=== PATIENT | female | born 1960 | race Caucasian/White ===

== ENCOUNTER 2020-03-23 02:09 | Outpatient (CLI) | payer OTHER, SELFPAY ==
[2020-03-23 18:38] LABS: SARS-CoV-2 RNA PCR Negative
== END 2020-03-23 02:10 | disposition home or self-care (01) ==
LOC: ANHCOVIDDT 02:09
PROVIDERS: PCP Family Medicine; Visit Provider Internal Medicine Gastroenterology
DX: Z01.812 Encounter for preprocedural laboratory examination (principal); Z11.59 Encounter for screening for other viral diseases
CPT/HCPCS: 87635; C9803; U0003

== ENCOUNTER 2020-03-25 02:16 | Day surgery (SDC) | payer OTHER, SELFPAY ==
[2020-03-18 11:38] VITALS: BMI 35.9
[2020-03-25 07:19] VITALS: BP 130/73; PULSE 88; RESP 20; TEMP 36.6; O2SAT 97
[2020-03-25] MEDS: LACTATED RINGERS 1,000 ML 150 ML IV CONT (07:32)
--- NOTE | 2020-03-25 08:18 | P.HP_ITS ---
History of Present Illness History of Present Illness Consent: Risks, benefits, and alternatives have been discussed and questions answered. Patient agrees to proceed with procedure. Chief complaint: neoplasm screening Narrative: Honey Hicks is a 60 year old female referred for screening colonoscopy. Her last exam was 10 years ago [facility] Past Medical History Medical History Anxiety GERD (gastroesophageal reflux disease) Hyperlipidemia Hypertension LATONIA (obstructive sleep apnea) Family History Family History Father Hypertension Family history of elevated blood lipids Family history of kidney disease Grandparent Family history of Alzheimer's disease Mother Family history of heart disease in male family member before age 55 Hypertension Family history of dementia Family history of Alzheimer's disease Social History Social History Smoking status: Former smoker Smoking end date: 09/02/08 Alcohol intake: current Meds Home Medications and Allergies Home Medications Medication Instructions Recorded Confirmed Type allopurinol 100 mg PO HS 03/18/20 03/18/20 History alprazolam 0.5 mg PO BID PRN 03/18/20 03/18/20 History amlodipine 5 mg PO QAM 03/18/20 03/18/20 History atorvastatin 10 mg PO HS 03/18/20 03/18/20 History calcium carbonate [Calcium 600] 600 mg PO DAILY 03/18/20 03/18/20 History ewkctblpt-mkibqsxm-fii-hyalur 1 tablet PO QAM 03/18/20 03/18/20 History [Move Free Ultra Triple Action] celecoxib 100 mg PO BID 03/18/20 03/18/20 History ergocalciferol (vitamin D2) 50,000 unit PO WEEKLY 03/18/20 03/18/20 History lisinopril-hydrochlorothiazide 1 tablet PO QAM 03/18/20 03/18/20 History magnesium 250 mg PO DAILY 03/18/20 03/18/20 History phentermine 30 mg PO QAM 03/18/20 03/18/20 History Allergies Allergy/AdvReac Type Severity Reaction Status Date / Time No Known Allergies Allergy Verified 03/25/20 07:18 Vital Signs Vital Signs - 24 hr 03/25/20 07:19 Temperature 36.6 C Pulse Rate 88 Respiratory Rate 20 Blood Pressure 130/73 Pulse Oximetry 97 Exam Resp: Auscultation: clear to auscultation bilaterally Cardio: Rate: regular rate Rhythm: regular rhythm GI: GI Palp: Yes Soft to palpation and No Tenderness to palpation present (GI) Assessment and Plan Assessment and plan (1) Colon cancer screening: Code(s): Z12.11 - Encounter for screening for malignant neoplasm of colon Status: Acute Assessment and Plan: Colonoscopy with possible biopsy or polypectomy or cautery or injection of substances.
--- NOTE | 2020-03-25 08:20 | WPDANESEPPF ---
Anes - Initial Pre Proc Eval Procedure: Operation Date: 03/25/20 08:30 Proposed Procedures p Screening Colonoscopy - Jose Luis Bills MD Date/Time: 03/25/20 08:20 Surgeon: Jose Luis Bills MD Pre Op Diagnosis: neoplasm screening Patient Data Age: 60 Gender: F Height: 5 ft 3 in Weight: 92.1 kg Last Vital Signs Temp 97.8 F 03/25/20 07:19 Pulse 88 03/25/20 07:19 Resp 20 03/25/20 07:19 BP 130/73 03/25/20 07:19 Pulse Ox 97 03/25/20 07:19 Allergies Allergy/AdvReac Type Severity Reaction Status Date / Time No Known Allergies Allergy Verified 03/25/20 07:18 Home Medications Medication Instructions Recorded Confirmed Type allopurinol 100 mg PO HS 03/18/20 03/18/20 History alprazolam 0.5 mg PO BID PRN 03/18/20 03/18/20 History amlodipine 5 mg PO QAM 03/18/20 03/18/20 History atorvastatin 10 mg PO HS 03/18/20 03/18/20 History calcium carbonate [Calcium 600] 600 mg PO DAILY 03/18/20 03/18/20 History [id number]-wccghdbb-gxb-hyalur 1 tablet PO QAM 03/18/20 03/18/20 History [Move Free Ultra Triple Action] celecoxib 100 mg PO BID 03/18/20 03/18/20 History ergocalciferol (vitamin D2) 50,000 unit PO WEEKLY 03/18/20 03/18/20 History lisinopril-hydrochlorothiazide 1 tablet PO QAM 03/18/20 03/18/20 History magnesium 250 mg PO DAILY 03/18/20 03/18/20 History phentermine 30 mg PO QAM 03/18/20 03/18/20 History Patient hx anesthesia problems: none Family hx anesthesia problems: none PMFSH Past Medical History Medical History Anxiety GERD (gastroesophageal reflux disease) Hyperlipidemia Hypertension LATONIA (obstructive sleep apnea) Family History Family History Father Hypertension Family history of elevated blood lipids Family history of kidney disease Grandparent Family history of Alzheimer's disease Mother Family history of heart disease in male family member before age 55 Hypertension Family history of dementia Family history of Alzheimer's disease Social History Social History Smoking status: Former smoker Smoking end date: 09/02/08 Alcohol intake: current Anes - Eval Final PreProcedure Day of Procedure 03/25/20 08:20 Patient weight: overweight Heart: regular rate and rhythm Lungs: clear to auscultation Airway: Mallampati scale class II Neurological: alert and oriented Last oral intake: >/= 8 hours ASA classification: III Emergent: no Anesthetic plan: proceed Anesthesia type and monitoring: general GIVS and standard monitoring Informed Consent: The patient's anesthetic plan and its attendant risks and benefits were discussed with the patient/family/POA. Questions were solicited and answers provided to the satisfaction of the patient/family/POA.
[2020-03-25 08:55] VITALS: BP 113/65; PULSE 76; RESP 20; O2SAT 96
[2020-03-25 09:05] VITALS: BP 126/69; PULSE 72; RESP 20; O2SAT 99
[2020-03-25 09:15] VITALS: BP 132/78; PULSE 76; RESP 20; O2SAT 98
== END 2020-03-25 09:26 | disposition home or self-care (01) ==
PROVIDERS: PCP Family Medicine; Visit Provider Internal Medicine Gastroenterology
PROC: 0DJD8ZZ Inspection of Lower Intestinal Tract, Via Natural or Artificial Opening Endoscopic (ICD-10-PCS; CPT 45378; principal; 2020-03-25 08:30)
DX: Z12.11 Encounter for screening for malignant neoplasm of colon (principal); K62.1 Rectal polyp; I10 Essential (primary) hypertension; E78.5 Hyperlipidemia, unspecified; G47.33 Obstructive sleep apnea (adult) (pediatric); K21.9 Gastro-esophageal reflux disease without esophagitis; F41.9 Anxiety disorder, unspecified; Z87.891 Personal history of nicotine dependence
CPT/HCPCS: 45385; 88305; J2704; J7120

== ENCOUNTER 2022-08-13 09:26 | Outpatient (CLI) | payer OTHER, SELFPAY ==
--- NOTE | 2022-08-13 09:57 | ECG_ITS ---
Measurements Intervals Souris Rate: 80 P: 46 MN: 179 QRS: 38 QRSD: 93 T: 44 QT: 403 QTc: 465 Interpretive Statements SINUS RHYTHM INCOMPLETE RIGHT BUNDLE BRANCH BLOCK [90+ ms QRS DURATION, TERMINAL R IN V1/V2, 40+ ms S IN I/aVL/V4/V5/V6] BORDERLINE ECG Electronically Signed On 08-13-2022 15:08:55 [employer]ICAL [employer]NAGER by Ruddy Norris M.D.
[2022-08-13 10:17] LABS: Anion Gap 7 mmol/L (8-16); Blood Urea Nitrogen 8 mg/dL (7-17); Calcium 9.1 mg/dL (8.4-10.2); Carbon Dioxide 31 mmol/L (22-30); Chloride 99 mmol/L (98-107); Estimated Glomerular Filt Rate > 60; Glucose 123 mg/dL (65-110); Potassium 3.9 mmol/L (3.4-5.0); Sodium 137 mmol/L (137-145)
== END 2022-08-13 09:27 | disposition home or self-care (01) ==
PROVIDERS: PCP Family Medicine; Visit Provider Orthopaedic Surgery
DX: Z01.818 Encounter for other preprocedural examination (principal); I45.10 Unspecified right bundle-branch block
CPT/HCPCS: 36415; 80048; 93005